=== PATIENT | female | born 1950 | race Caucasian/White ===

== ENCOUNTER → 2017-01-25 | Outpatient (CLI) | payer OTHER ==
--- NOTE | ~2017-01-25 | PUL ---
PATIENT'S NAME: REYNALDO BREWER AGE: 66 Y [address] ROOM: [place] [id number] LOCATION: [facility] ADMIT DATE: 01/25/2017 Pulmonary DISCHARGE DATE: FAMILY PHYSICIAN: Chapo Duncan MD ATTENDING PHYSICIAN: AUDREY HERNADEZ NAME OF PROCEDURE: Pulmonary Function Test DATE OF PROCEDURE: January 25, 2017 TECH: KANIKA Pineda REASON FOR EXAM: Pulmonary fibrosis RESULTS: 1. FVC was 2.62 liters which is 71% of predicted and low, FEV1 was 2.01 liters which is 71% of predicted and low, and FEV1/FVC was 77% and normal. The flow volume curve did not reveal any significant airflow limitation. After bronchodilator administration FVC increased to 2.71 liters which is a 3% increase and FEV1 increased to 2.1 liters which is a 4% increase. FEV1/FVC was 78%. 2. DLCO was 13.6 with an adjusted DLCO of 14.1 which is 56% of predicted and low. 3. Total lung capacity was 5.08 liters which is 90% of predicted and normal, and residual volume was 2.2 liters which is 99% of predicted and normal. PHYSICIAN INTERPRETATION: The patient has no airflow limitation and no significant bronchodilator response. Her diffusion capacity is moderately low. There is no evidence of restrictive lung disease. She has nonspecific reduction in FVC and FEV1, which can be see in chronic airway diseases. Clinical correlation is advised. MD FELECIA WILSON/chanel /[id number] dtt: 01/31/17 [id number] , AUDREY HERNADEZ dtd: 01/30/17 1121
== END | disposition disaster alternative care site (69) ==
LOC: GRTH 08:55
DX: J84.10 Pulmonary fibrosis, unspecified (principal)